=== PATIENT | male | born 1965 | race Caucasian/White ===

== ENCOUNTER → 2017-04-18 | Outpatient (CLI) | payer OTHER ==
[~2017-04-18] MED LIST: Iopamidol 755 MG/ML 500 ML Multipack Bottle IVPUSH STA
--- NOTE | 2017-04-19 13:13 | CT ---
EXAM DATE: 04/18/17 PATIENT'S AGE: 52 Patient: LAURA SALAS Facility: [place], [place] Site . Site : 1965 Study: CT Chest W/ and W/O Cont [id number] 5:23:30 PM Ordering Physician: Adalgisa Liang Final Report: INDICATION: AAA. CT CHEST, ABDOMEN, AND PELVIS WITHOUT AND WITH CONTRAST TECHNIQUE: Multidetector CT imaging was performed through the chest, abdomen, and pelvis prior to and following intravenous contrast administration using 110 mL Isovue 370. Coronal and sagittal reconstructions were generated. COMPARISON: None. FINDINGS: Lungs and airways: Mild centrilobular pulmonary emphysema. A few small bilateral lung nodules, the largest in the left lower lobe measuring up to 6 millimeters in size. Central airways are patent. Borderline enlarged right hilar lymph node on image 58 of series 501. Pleura and pleural spaces: No pleural effusions or pneumothorax. Heart and mediastinum: Normal heart size. No significant pericardial effusion. No mediastinal lymphadenopathy. Vascular structures: Dilation of ascending aorta measuring up to 4.5 centimeters in AP diameter. Normal caliber abdominal aorta. No evidence of aortic dissection. Minimal atherosclerotic calcification of the aorta and iliac arteries. Chest wall and axillae: No mass or axillary lymphadenopathy. Liver and spleen: Fatty infiltration of the liver. Unremarkable spleen. Gallbladder and bile ducts: No gallbladder wall thickening or calcified gallstones. No biliary dilation identified. Pancreas, adrenals, and retroperitoneum: No pancreatic or adrenal mass. No pathologically enlarged lymph nodes identified in the abdomen or pelvis. Kidneys, ureters, and urinary bladder: Small right renal cortical cyst. No solid renal masses or hydronephrosis. No urinary tract stones. No bladder mass or definite wall thickening. Gastrointestinal tract and peritoneum: Normal caliber bowel without wall thickening. Normal appendix. No free air, abscess, or significant free fluid. Reproductive organs: No pelvic masses. Bones: Old healed lower left rib fractures. Mild multilevel spondylosis. IMPRESSION: 1. No acute intrathoracic or intraabdominal abnormality identified. 2. Aneurysmal dilation of the ascending aorta measuring 4.5 centimeters in AP diameter. No evidence of aortic dissection. 3. Mild centrilobular pulmonary emphysema. 4. Several small bilateral lung nodules, 6 millimeters in size. Followup per Fleischner Society guidelines is suggested. 5. Fatty infiltration of the liver. 6. Nonacute additional findings as detailed above. GLADIS MAJOR MD [facility] [employer] Dictated by Shaji Major MD @ 04/18/2017 9:59:12 PM Dictated by: Shaji Major MD @ 04/18/2017 22:02:20 (Electronic Signature) Report Signed by Proxy. [facility]PITALS[facility]
--- NOTE | 2017-04-19 13:14 | CT ---
EXAM DATE: 04/18/17 PATIENT'S AGE: 52 Patient: LAURA SALAS Facility: [place], [place] Site . Site : 1965 Study: CT Abdomen/Pelvis W/ and W/O Cont [id number] 5:23:52 PM Ordering Physician: Adlagisa Liang Final Report: INDICATION: AAA. CT CHEST, ABDOMEN, AND PELVIS WITHOUT AND WITH CONTRAST TECHNIQUE: Multidetector CT imaging was performed through the chest, abdomen, and pelvis prior to and following intravenous contrast administration using 110 mL Isovue 370. Coronal and sagittal reconstructions were generated. COMPARISON: None. FINDINGS: Lungs and airways: Mild centrilobular pulmonary emphysema. A few small bilateral lung nodules, the largest in the left lower lobe measuring up to 6 millimeters in size. Central airways are patent. Borderline enlarged right hilar lymph node on image 58 of series 501. Pleura and pleural spaces: No pleural effusions or pneumothorax. Heart and mediastinum: Normal heart size. No significant pericardial effusion. No mediastinal lymphadenopathy. Vascular structures: Dilation of ascending aorta measuring up to 4.5 centimeters in AP diameter. Normal caliber abdominal aorta. No evidence of aortic dissection. Minimal atherosclerotic calcification of the aorta and iliac arteries. Chest wall and axillae: No mass or axillary lymphadenopathy. Liver and spleen: Fatty infiltration of the liver. Unremarkable spleen. Gallbladder and bile ducts: No gallbladder wall thickening or calcified gallstones. No biliary dilation identified. Pancreas, adrenals, and retroperitoneum: No pancreatic or adrenal mass. No pathologically enlarged lymph nodes identified in the abdomen or pelvis. Kidneys, ureters, and urinary bladder: Small right renal cortical cyst. No solid renal masses or hydronephrosis. No urinary tract stones. No bladder mass or definite wall thickening. Gastrointestinal tract and peritoneum: Normal caliber bowel without wall thickening. Normal appendix. No free air, abscess, or significant free fluid. Reproductive organs: No pelvic masses. Bones: Old healed lower left rib fractures. Mild multilevel spondylosis. IMPRESSION: 1. No acute intrathoracic or intraabdominal abnormality identified. 2. Aneurysmal dilation of the ascending aorta measuring 4.5 centimeters in AP diameter. No evidence of aortic dissection. 3. Mild centrilobular pulmonary emphysema. 4. Several small bilateral lung nodules, 6 millimeters in size. Followup per Fleischner Society guidelines is suggested. 5. Fatty infiltration of the liver. 6. Nonacute additional findings as detailed above. GLADIS MAJOR MD [facility] Dictated by Shaji Major MD @ 04/18/2017 9:59:12 PM Dictated by: Shaji Major MD @ 04/18/2017 22:02:05 (Electronic Signature) Report Signed by Proxy. [place]
== END ==
LOC: MW.DI 10:37
PROVIDERS: ATTEND Nurse Practitioner Family
DX: I71.2 Thoracic aortic aneurysm, without rupture (principal); I71.4 Abdominal aortic aneurysm, without rupture; J43.2 Centrilobular emphysema; K76.0 Fatty (change of) liver, not elsewhere classified; R91.8 Other nonspecific abnormal finding of lung field
CPT/HCPCS: 71270; 74170; Q9967